=== PATIENT | female | born 1985 | race Caucasian/White ===

== ENCOUNTER 2016-09-25 08:06 | Inpatient (IN) | payer MEDICAID ==
[2016-09-19 09:01] VITALS: Ht 172.7 cm; Wt 107.0 kg
[2016-09-25] VITALS (29 sets, daily range): BP systolic 89–167; RESP 17–36; TEMP 97.8–98.6
[~2016-09-25] VITALS: Ht 172.7 cm; Wt 107.0 kg
[2016-09-25] MEDS ORDERED: CEFAZOLIN 2,000 MG in SODIUM CHLORIDE 0.9% 100 ML IV ONE (08:30)
[2016-09-25] MEDS ORDERED: MIDAZOLAM 2 MG/2 ML INJ IV ONE (08:45)
[2016-09-25] MEDS ORDERED: LIDOCAINE 1% BUFFERED 1 ML SYR INTRADERM PRN (08:45)
[2016-09-25] MEDS ORDERED: LACT RINGERS 1,000 ML IV SCH (08:45)
[2016-09-25] MEDS ORDERED: GLYCOPYRROLATE 0.2 MG/ML VIAL IV ONE ×2 (08:45→14:23)
[2016-09-25] MEDS ORDERED: CRASH CART/CODE RESPONSE CHARGE XX ONE (11:10)
[2016-09-25] MEDS ORDERED: HALOPERIDOL 5 MG/ML VIAL ONE (11:16)
[2016-09-25] MEDS ORDERED: LORAZEPAM 2 MG/ML VIAL IV ONE (11:20)
[2016-09-25] MEDS ORDERED: LORAZEPAM 2 MG/ML VIAL ONE (11:24)
[2016-09-25] MEDS: DEXMEDETOMIDINE 200 MCG in SODIUM CHLORIDE 0.9% 48 ML IV SCH ×3 (12:09→16:02)
[2016-09-25] MEDS ORDERED: ONDANSETRON 4 MG VIAL IV PUSH ONE (14:23)
[2016-09-25] MEDS ORDERED: PROPOFOL 50ML PER ML IV ONE (14:23)
[2016-09-25] MEDS ORDERED: DEXAMETHASONE 4 MG/ML VIAL IV ONE (14:23)
[2016-09-25] MEDS ORDERED: PRECEDEX 200 MCG/2 ML VL IV ONE (14:23)
[2016-09-25] MEDS ORDERED: EPINEPHrine 1 MG/ML AMP SUBQ ONE (14:23)
[2016-09-25] MEDS ORDERED: FAT EMULSION 20% 250 ML IV ONE (14:23)
[2016-09-25] MEDS ORDERED: BUPIVACAINE 0.5% PF 30 ML NERVEBLOCK ONE (14:23)
[2016-09-25] MEDS ORDERED: LIDOCAINE 2% SYR 5 ML IV ONE (14:23)
[2016-09-25] MEDS ORDERED: BACITRACIN 50,000 UNITS INJ IRRIG ONE (14:23)
[2016-09-25] MEDS ORDERED: LORAZEPAM 2 MG/ML VIAL IV PRN ×2 (14:35)
[2016-09-25] MEDS ORDERED: MORPHINE 4 MG/ML SYR IV PRN (14:45)
[2016-09-25] MEDS ORDERED: SALINE FLUSH 10 ML FLUSH PRN (14:45)
[2016-09-25] MEDS ORDERED: MORPHINE 2 MG/ML SYR IV PRN (14:45)
[2016-09-25] MEDS ORDERED: SODIUM PHOSPHATE 30 MM in SODIUM CHLORIDE 0.9% 250 ML IV ONE (15:25)
[2016-09-25] MEDS ORDERED: MISSING DOSE XX ONE (15:45)
[2016-09-25] MEDS: MAGNESIUM SULF 1 GM/100 ML 100 ML IV SCH ×3 (16:16→18:40)
[2016-09-25] MEDS: CEFAZOLIN 2,000 MG in SODIUM CHLORIDE 0.9% 100 ML IV SCH ×2 (16:38→21:21)
[2016-09-25] MEDS ORDERED: HALOPERIDOL 5 MG/ML VIAL IV PRN (19:00)
[2016-09-25] MEDS ORDERED: FAMOTIDINE 20 MG/50 ML 50 ML IV SCH (21:00)
[2016-09-25] MEDS: FAMOTIDINE 20 MG INJ IV SCH (21:21)
[2016-09-25] MEDS: SALINE FLUSH 10 ML FLUSH SCH (21:21)
[2016-09-26] VITALS (14 sets, daily range): BP systolic 97–141; RESP 17–27; TEMP 98.4
[2016-09-26] MEDS ORDERED: CHLORHEXIDINE 0.12% ORAL CARE FOR VENT PATIENTS 15 ML SWAB SCH
[2016-09-26] MEDS: CEFAZOLIN 2,000 MG in SODIUM CHLORIDE 0.9% 100 ML IV SCH ×2 (03:24→07:59)
[2016-09-26] MEDS ORDERED: SODIUM CHLORIDE 0.9% FLUSH BAG 500 ML IV SCH (06:00)
[2016-09-26] MEDS: FAMOTIDINE 20 MG INJ IV SCH (07:59)
[2016-09-26] MEDS: SALINE FLUSH 10 ML FLUSH SCH (08:01)
[2016-09-26] MEDS ORDERED: ENOXAPARIN 40 MG/0.4 ML SYR SUBQ SCH (09:00)
== END 2016-09-26 13:34 | disposition home or self-care (01) | DRG 987 ==
LOC: OSEC 08:06 → ICU 10:36 → ENPENDDIS 14:42 → OSEC 14:47
PROVIDERS: ADMIT Internal Medicine Pulmonary Disease; ATTEND Internal Medicine Pulmonary Disease
PROC: 01N50ZZ Release Median Nerve, Open Approach (ICD-10-PCS; 2016-09-25)
PROC: 03HY32Z Insertion of Monitoring Device into Upper Artery, Percutaneous Approach (ICD-10-PCS; 2016-09-25)
PROC: 5A2204Z Restoration of Cardiac Rhythm, Single (ICD-10-PCS; principal; 2016-09-25 09:31)
DX: I49.01 Ventricular fibrillation (principal); G92 Toxic encephalopathy; G56.02 Carpal tunnel syndrome, left upper limb; F17.210 Nicotine dependence, cigarettes, uncomplicated; T41.3X5A Adverse effect of local anesthetics, initial encounter
CPT/HCPCS: 70450; 80053; 81025; 82803; 82947; 83605; 83735; 84100; 85025; 92950; 93005; 93306; 94002; 94799; 99232; 99291